=== PATIENT | female | born 1985 | race Caucasian/White ===

== ENCOUNTER 2018-05-05 07:36 | Emergency (ER) | payer BC ==
[2018-05-05 07:44] VITALS: BP 147/104
[2018-05-05] MEDS ORDERED: LIDOCAINE PATCH 5% TOP PRN (08:05)
[2018-05-05] MEDS ORDERED: CYCLOBENZAPRINE 10 MG TABLET PO STA (08:05)
[2018-05-05] MEDS ORDERED: DEXAMETHASONE 10 MG/ML VIAL PO STA (08:05)
--- NOTE | 2018-05-05 08:08 | ED Physician Documentation ---
History of Present Illness - Stated complaint Stated Complaint: LEFT LEG PX - Chief complaint Chief Complaint: Ext Problem - Additonal information Additional information: hx from pt healthy 32 f not no breast feeding low left back pain rad to L buttock limited ROM no numbness weakness has travelled recently to [facility] for work does not recall injury no leg swelling no abd pain no recent surgery no IV IM meds drugs Review of Systems Constitutional: denies: Fever Cardiac: denies: Chest pain / pressure Respiratory: denies: Dyspnea GI: denies: Abdominal Pain : reports: LMP (1 wk ago). denies: Now EGA Musculoskeletal: reports: Back pain, Extremity pain Immunocompromised: denies: Immunocompromised PD PAST MEDICAL HISTORY - Past Medical History GI: Other Other Past Medical History: celiac - Past Surgical History Past Surgical History: No - Present Medications Home Medications: Ambulatory Orders Medication Instructions Recorded Confirmed Cyclobenzaprine [Flexeril] 10 mg PO TID PRN #20 tablet 05/05/18 Lidocaine Patch 5% [Lidoderm Patch] 1 each TOP DAILY PRN #10 patch 05/05/18 predniSONE [Deltasone] 40 mg PO DAILY 5 Days #5 tablet 05/05/18 - Allergies Allergies/Adverse Reactions: Allergies Allergy/AdvReac Type Severity Reaction Status Date / Time No Known Drug Allergies Allergy Verified 05/05/18 07:44 - Social History Does the pt smoke?: No Smoking Status: Never smoker Does the pt drink ETOH?: Yes Does the pt have substance abuse?: No - Immunizations Immunizations are current?: Yes - POLST Patient has POLST: No PD ED PE NORMAL - Vitals Vital signs reviewed: Yes - Neck Neck: Supple, no meningeal sign - Cardiac Cardiac: RRR, No murmur - Respiratory Respiratory: No respiratory distress - Abdomen Abdomen: Soft, Non tender, Other (no pulsatile mass) - Back Back: No spinal TTP (and no focal redness swelling or warmth, limited extension left toation 2/2 mm spasm, TTP low L lumbar region) - Derm Derm: Normal color - Extremities Extremities: No edema, No calf tenderness / cord, Other (+ pulses) - Neuro Neuro: Alert and oriented X 3, sulfonator operator 2-12 intact, No motor deficit, No sensory deficit, Other (hip flex knee ext foot dorsi plantar and great toe ext 5/5, + SLR (L buttock pain is exacerbated), deneis saddle anesthesia, nl sensation, patellar DTR 2+/4, no clonus) Results - Vitals Vitals: Vital Signs - 24 hr 05/05/18 07:42 Temperature 36.1 C L Heart Rate 88 Respiratory 16 Rate Blood Pressure 147/104 H O2 Saturation 98 Oxygen O2 Source Room air PD MEDICAL DECISION MAKING - Sepsis Event Vital Signs: Vital Signs - 24 hr 05/05/18 07:42 Temperature 36.1 C L Heart Rate 88 Respiratory 16 Rate Blood Pressure 147/104 H O2 Saturation 98 Oxygen O2 Source Room air Departure - Departure Disposition: 01 Home, Self Care Clinical Impression: Back pain with left-sided sciatica Condition: Good Instructions: ED Sciatica, ED Spasm Back No Trauma Prescriptions: Cyclobenzaprine [Flexeril] 10 mg PO TID PRN #20 tablet PRN Reason: Spasms Lidocaine Patch 5% [Lidoderm Patch] 1 each TOP DAILY PRN #10 patch PRN Reason: Pain predniSONE [Deltasone] 40 mg PO DAILY 5 Days #5 tablet Comments: The steroids should decrease the nerve inflammation and provide pain relief Do not take naproxen or other NSAIDS while taking steroids. The flexeril is a muscle relaxant The lidocaine patches can be worn up to 12 hr a day - one patch applied to the most painful spot If not better in a week, please see your PMD Also please see your PMD to have your blood pressure rechecked when you are feeling better - it was high today. Return to the ER if worse (numbness weakness, leaking urine or unable to urinate , fever, severe pain)
[2018-05-05] MEDS ORDERED: CHERRY SYRUP 10 ML UDC PO ONE (08:23)
== END 2018-05-05 08:19 | disposition home or self-care (01) ==
LOC: ED 07:36
DX: M54.9 Dorsalgia, unspecified (principal); M54.32 Sciatica, left side
CPT/HCPCS: 99283; A9270